=== PATIENT | female | born 1995 | race Caucasian/White ===

== ENCOUNTER 2024-05-17 04:09 | Emergency (ER) | payer BC ==
[~2024-05-17] VITALS: Ht 160 cm; Wt 84.1 kg
[2024-05-17 04:16] VITALS: TEMP 98
[2024-05-17] MEDS ORDERED: NS 1,000 ML IV ONE (04:45)
[2024-05-17] MEDS ORDERED: Ketorolac 15 MG/ML VIAL IV ONE (04:45)
[2024-05-17 04:53] LABS: BASO # 0.1 K/mm3 (0.0-0.2); BASO % 1.3 % (0.0-2.0); EOS # 0.3 K/mm3 (0.0-0.7); EOS % 4.2 % (0.0-4.0); GRAN # 3.8 K/mm3 (1.4-6.5); GRAN % 49.3 % (42.2-75.2); HEMATOCRIT 38.3 % (37.0-47.0); HEMOGLOBIN 13.6 g/dl (12.5-16.0); LYMPH # 2.5 K/mm3 (1.2-3.4); LYMPH % 32.4 % (20.0-51.0); MEAN CELL VOLUME 89 fl (80.0-100.0); MEAN CORPUSCULAR HEMOGLOBIN 32 pg (27-31); MEAN CORPUSCULAR HGB CONC 36 g/dl (33.0-37.0); MEAN PLATELET VOLUME 9.3 fl (7.4-10.4); MONO % 12.7 % (1.7-9.3); PLATELET COUNT 353 K/mm3 (130-400); REDCELL DISTRIBUTION WIDTH-CV 11.8 % (11.5-14.5)
[2024-05-17 05:12] LABS: ALBUMIN 3.6 g/dL (3.5-5.0); BILIRUBIN,TOTAL 0.7 mg/dL (0.2-1.2); CALCIUM 9.4 mg/dL (8.4-10.2); CREATININE, serum 0.71 mg/dL (0.57-1.11); POTASSIUM 4.1 mEq/L (3.5-4.5); TOTAL PROTEIN 7.8 g/dl (6.2-8.1)
[2024-05-17] MEDS ORDERED: Iohexol 300 - 100 ML VIAL IV ONE (06:00)
[2024-05-17] MEDS ORDERED: NS 50 ML IV SCH (06:01)
[2024-05-17] MEDS ORDERED: DOXYCYCLINE 10100 MG PO (07:25)
[2024-05-17] MEDS ORDERED: Doxycycline Monohydrate 100 MG CAP PO ONE (07:30)
[2024-05-17] MEDS ORDERED: ZITHROMAX Z PA250 MG PO (07:40)
[2024-05-17] MEDS ORDERED: VENTOLIN0.09 MG IH (07:41)
[2024-05-17 11:00] VITALS: BP 116/76; PULSE 71
== END 2024-05-17 11:17 | disposition home or self-care (01) ==
LOC: COL.ER 04:09
PROVIDERS: Emergency Medicine
DX: R93.0 Abnormal findings on diagnostic imaging of skull and head, not elsewhere classified (principal); J18.9 Pneumonia, unspecified organism; J32.9 Chronic sinusitis, unspecified
CPT/HCPCS: J1885; J7030; Q9967